=== PATIENT | female | born 1960 | race Caucasian/White ===

== ENCOUNTER 2019-04-20 07:18 | Day surgery (SDC) | payer OTHER ==
[2019-04-16 10:12] VITALS: BMI 29.2
[2019-04-20] MEDS ORDERED: methylPREDNISolone ACET (DEPO) 40 MG/1 ML VIAL ONE (07:22)
[2019-04-20] MEDS ORDERED: BUPIVACAINE HCL 0.25% 125 MG/50 ML VIAL ONE (07:22)
[2019-04-20] MEDS ORDERED: EPINEPHrine 1:1,000 1 MG/1 ML - 30ML VIAL (INJECTION) ONE (07:23)
[2019-04-20] MEDS ORDERED: MIDAZOLAM HCL 2 MG/2 ML SINGLE DOSE VIAL ONE (08:32)
[2019-04-20] MEDS ORDERED: ONDANSETRON 4 MG/2 ML VIAL ONE (08:32)
[2019-04-20] MEDS ORDERED: PROPOFOL 20 ML ONE ×2 (08:32)
[2019-04-20] MEDS ORDERED: DEXAMETHASONE SOD PHOSPHATE 4 MG/1 ML VIAL ONE (08:32)
[2019-04-20] MEDS ORDERED: SUCCINYLCHOLINE CHLORIDE 200 MG/10 ML SYRINGE ONE (08:35)
[2019-04-20] MEDS ORDERED: BUPIVACAINE HCL/PF 0.25% (2.5MG/ML) 10 ML VIAL IJ ONE (10:16)
[2019-04-20] MEDS ORDERED: methylPREDNISolone ACET (DEPO) 40 MG/1 ML VIAL NR ONE (10:16)
--- NOTE | 2019-04-20 10:25 | PN ---
Progress Note (short form) - Note Progress Note: 58F s/p surgical arthroscopy left knee POD #0. -Pain control. -Incentive spirometry. -PT/OT/Rehab if needed. -WBAT LLE. -Crutch training. -Keep dressing clean & dry; remove dressing on Tuesday and cover suture sites with water-proof Band-Aid. -Percocet ordered to pharmacy for analgesia. -Discharge home: f/u [facility] [place] [facility] in 1 week; call for appointment: . Ezekiel Moura MD (Orthopaedic Surgery).
--- NOTE | 2019-04-20 10:27 | OP ---
Operative Note - Note: Operative Date: 04/20/19 Pre-Operative Diagnosis: Internal derangement left knee Operation: SALK Findings: Tricompartment OA Post-Operative Diagnosis: Same as Pre-op Surgeon: Ezekiel Moura Anesthesiologist/GEOSCIENTIST: Rohan Lyon Anesthesia: General Estimated Blood Loss (mls): 0 Fluid Volume Replaced (mls): 500 (Crystalloid) Operative Report Dictated: Yes
[2019-04-20] MEDS ORDERED: ONDANSETRON 4 MG/2 ML VIAL IVPUSH PRN (10:41)
[2019-04-20] MEDS ORDERED: oxyCODONE HCL 5 MG TABLET PO PRN (10:41)
--- NOTE | 2019-04-20 11:01 | OP ---
DATE OF OPERATION: DATE OF DICTATION: 04/20/2019 SURGEON: Ezekiel Moura MD PREOPERATIVE DIAGNOSIS: Medial meniscal tear with osteoarthritis, right knee. POSTOPERATIVE DIAGNOSIS: Osteoarthritis, right knee. OPERATION PERFORMED: Arthroscopic washout and debridement with associated diagnostic lavage. ANESTHESIA: General. ANTIBIOTICS GIVEN: 2 g Kefzol. DESCRIPTION OF PROCEDURE: Patient in the supine position. Left lower extremity was prepped and draped in the routine manner with a Betadine scrub solution, wiped off with alcohol, DuraPrep applied. Leg khanna utilized and a tourniquet. After complete prep of the skin with Betadine scrub solution and wiped off with alcohol, the limb was subjected to free drape. Standard anterolateral portal utilized. Access into the knee with the arthroscopy instrumentation. First, the suprapatellar pouch and synovium revealed the presence of chronic fibular changes. Multiple floating fragments noted in the joint. These were readily lavaged and washed out. The joint was inspected. The patella had medial fibular joint degeneration of the medial facets. The entire periphery rimmed osteophyte readily noted indicative of the osteoarthritis. The trochlear groove was well preserved except for the lateral side where there were Outerbridge level 2 changes. The medial femoral condyle on the articular surface revealed both Outerbridge 3 and 4 changes with eburnated bone readily noted. The margin of the hyaline cartilage was stable. No need for any shaving or interference of the surface. The tibial plateau on the medial side revealed extensive Outerbridge 3-4 changes as well. The meniscus was completely intact. No tears noted. Posterior horn slight fibular changes. The lateral compartment was then entered. A very clear evaluation of the lateral compartment revealed extensive arthritic changes on the tibial plateau surface, less so on the femur. Small divot on the medial aspect of the lateral femoral condyle noted. Popliteus tendon was noted. The popliteus hiatus was inspected. Pulsating manipulation of the back of the knee to try and dislodge any loose fragments from the popliteus hiatus failed to show any loose fragments, but extensively noted loose bodies floating throughout the joint were readily lavaged appropriate. The knee was subjected to an extensive lavage. Marcaine steroid was instilled into the joint. The wound skin was closed with 3-0 nylon. No complications. Operation well. MD MICHAEL Adams/[id number]
[2019-04-20 13:31] VITALS: BP 124/65; PULSE 80; TEMP 97.5
== END 2019-04-20 12:40 | disposition home or self-care (01) ==
LOC: FASU 07:18
PROVIDERS: ATTEND Orthopaedic Surgery Orthopaedic Surgery of the Spine
PROC: 0SBC4ZZ Excision of Right Knee Joint, Percutaneous Endoscopic Approach (ICD-10-PCS; principal; 2019-04-20 10:08)
DX: M17.11 Unilateral primary osteoarthritis, right knee (principal)
CPT/HCPCS: 94760